=== PATIENT | male | born 1980 | race African-American/Black ===

== ENCOUNTER 2017-01-31 23:00 | Emergency (ER) | payer MEDICAID ==
[~2017-01-31] VITALS: Ht 188 cm; Wt 81.6 kg
[2017-01-31 23:04] VITALS: BP 131/79
[2017-01-31 23:08] VITALS: BP 131/79
[2017-01-31] MEDS ORDERED: IBUPROFEN600 MG ORAL (23:09)
[2017-01-31] MEDS ORDERED: AMOXIL250 MG ORAL (23:09)
[2017-01-31] MEDS ORDERED: TRAMADOL HCL50 MG ORAL (23:09)
[2017-01-31] MEDS ORDERED: HYDROCODON-ACE1 EA15 ORAL (23:41)
[2017-01-31] MEDS ORDERED: BACTRIM DS TAB1 EAC1 ORAL (23:41)
--- NOTE | 2017-01-31 23:41 | Emergency Room Report ---
History of Present Illness General Chief Complaint: Skin Rash/Abscess Source: Patient Present Illness HPI This is a 36-year-old male with no of the past medical history. He presents with swelling to the right chin area for the last week and a half. He try popping it. Now worse. Does have some drainage. No fever chills been no nausea no vomiting. Denies any other complaint. Worse with palpation. Allergies: Coded Allergies: No Known Allergies (Unverified , 01/31/17) Patient History Past Medical History: see triage record, old chart reviewed Past Surgical History: other Pertinent Family History: none Social History: Denies: drug use Immunizations: other Reviewed Nursing Documentation: PMH: Agreed, PSxH: Agreed Nursing Documentation-PMH Past Medical History: No Stated History Review of Systems Eye: Denies: eye pain, blurred vision ENT: Denies: ear pain, nose congestion, throat swelling Respiratory: Denies: cough, shortness of breath Cardiovascular: Denies: chest pain, palpitations Gastrointestinal: Denies: abdominal pain, diarrhea, nausea, vomiting Musculoskeletal: Denies: back pain, joint pain Skin: Denies: rash Neurological: Denies: headache, numbness Endocrine: Denies: increased thirst, increased urine Hematologic/Lymphatic: Denies: easy bruising All Other Systems: negative except mentioned in HPI Physical Exam Vital Signs Date Time Temp Pulse Resp B/P (MAP) Pulse Ox O2 Delivery O2 Flow Rate FiO2 01/31/17 23:04 98.1 72 14 131/79 96 Room Air vitals normal Sp02 EP Interpretation: reviewed, normal General Appearance: well appearing, no apparent distress, alert Head: normocephalic, atraumatic Eyes: bilateral eye PERRL, bilateral eye EOMI ENT: hearing grossly normal, normal pharynx, other - Right chin laterally: There is an indurated area of 3 cm with central necrosis. Tender to palpation. Neck: full range of motion, supple, no meningismus Respiratory: chest non-tender, lungs clear, normal breath sounds Cardiovascular #1: regular rate, rhythm, no murmur Gastrointestinal: normal bowel sounds, non tender, no mass, no organomegaly, no bruit, non-distended Musculoskeletal: back normal, gait/station normal, normal range of motion Psychiatric: mood/affect normal Skin: warm/dry Procedures Incision and Drainage Incision and Drainage : Consent: Verbal Site: chin Blade Size: 11 I & D Procedure: betadine prep, sterile drapes applied Wound Location: face Patient Tolerated: Well Complications: None Progress area clean with Betadine. Local acetic 1% lidocaine without epinephrine. I made a 2 cm incision in there was moderate amount of pus expressed. Are likely very broken up. Patient tolerated procedure without a problem. Medical Decision Making Diagnostic Impression: Primary Impression: Abscess of chin ER Course Patient with abscess to the chin. Most likely MRSA. Doing better now. We'll discharge home. No deep infection. No necrotizing fasciitis. No foreign body. Last Vital Signs Date Time Temp Pulse Resp B/P (MAP) Pulse Ox O2 Delivery O2 Flow Rate FiO2 01/31/17 23:04 98.1 72 14 131/79 96 Room Air Status: improved Disposition: HOME, SELF-CARE Condition: Stable Scripts Hydrocodone/Acetaminophen 5-325* (HYDROCODONE/ACETAMINOPHEN 5-325*) 1 Each Tablet 1 TAB ORAL Q6H Y for For Pain, #15 TAB 0 Refills Prov: JAY BRADHSAW M.D. 01/31/17 Trimethoprim/Sulfamethoxazole 160/800* (BACTRIM DS TABLET*) 1 Each Tablet 1 TAB ORAL Q12H, #14 TAB 0 Refills Prov: JAY BRADSHAW M.D. 01/31/17 Patient Instructions: Abscess Additional Instructions: Followup with your DrMaritza in 2 days for recheck. Return if worse. JAY BRADSHAW M.D. Jan 31, 2017 23:41
[2017-01-31] MEDS ORDERED: Norco 5mg/325mg tab ORAL ONE (23:45)
[2017-01-31] MEDS ORDERED: Bactrim DS (160mg/800mg) tab ORAL ONE (23:45)
== END 2017-02-01 00:10 | disposition home or self-care (01) ==
LOC: EMR 23:25
DX: L02.01 Cutaneous abscess of face (principal)
CPT/HCPCS: 10060; 64450; 99284

== ENCOUNTER 2018-05-06 02:31 | Emergency (ER) | payer MEDICAID ==
[~2018-05-06] VITALS: Ht 188 cm; Wt 81.6 kg
[~2018-05-06 02:31] MED LIST: AMOXIL250 MG ORAL; BACTRIM DS TAB1 EAC1 ORAL; HYDROCODON-ACE1 EA15 ORAL; IBUPROFEN600 MG ORAL; TRAMADOL HCL50 MG ORAL
[2018-05-06 02:53] VITALS: BP 127/84
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
[2018-05-06] MEDS ORDERED: IBUPROFEN600 MG ORAL (03:07)
[2018-05-06] MEDS ORDERED: ANUSOL-HC25 MG RECTAL (03:07)
[2018-05-06] MEDS ORDERED: ROBAXIN500 MG PO (03:07)
[2018-05-06 03:16] VITALS: BP 114/78
== END 2018-05-06 03:13 | disposition home or self-care (01) ==
LOC: EMR 02:58
DX: S60.222A Contusion of left hand, initial encounter (principal); V43.52XA Car driver injured in collision with other type car in traffic accident, initial encounter; Y92.411 Interstate highway as the place of occurrence of the external cause; M54.2 Cervicalgia; K64.9 Unspecified hemorrhoids; F17.200 Nicotine dependence, unspecified, uncomplicated
CPT/HCPCS: 99283

== ENCOUNTER 2018-07-19 01:39 | Emergency (ER) | payer MEDICAID ==
[~2018-07-19] VITALS: Ht 188 cm; Wt 81.6 kg
[~2018-07-19 01:39] MED LIST changes: +ANUSOL-HC25 MG RECTAL; +ROBAXIN500 MG PO
[2018-07-19] MEDS ORDERED: NKM (01:45)
[2018-07-19 01:53] VITALS: BP 119/80
[2018-07-19] MEDS ORDERED: IBUPROFEN600 MG ORAL (02:36)
[2018-07-19 02:40] VITALS: BP 119/80
--- NOTE | 2018-07-19 03:54 | Emergency Room Report ---
History of Present Illness General Chief Complaint: Upper Extremity Injury Source: Patient Present Illness HPI 37-year-old male presents ED for evaluation patient complaining of right hand pain and swelling. States that he "banged" his hand 2 weeks ago against a wall. Did not seek medical attention at that time. Pain is throbbing, 8 out of 10, nonradiating. Denies any other injuries. All other aggravating relieving factors. Denies any other associated symptoms Allergies: Coded Allergies: No Known Allergies (Unverified , 01/31/17) Patient History Past Medical History: none Past Surgical History: none Pertinent Family History: none Social History: Denies: smoking, alcohol use, drug use Immunizations: UTD Reviewed Nursing Documentation: PMH: Agreed; PSxH: Agreed Nursing Documentation-PMH Past Medical History: No Stated History Review of Systems All Other Systems: negative except mentioned in HPI Physical Exam Vital Signs Date Time Temp Pulse Resp B/P (MAP) Pulse Ox O2 Delivery O2 Flow Rate FiO2 07/19/18 01:42 97.9 80 16 119/80 97 Room Air Sp02 EP Interpretation: reviewed, normal General Appearance: no apparent distress, alert, GCS 15, non-toxic Head: normocephalic Eyes: bilateral eye normal inspection, bilateral eye PERRL ENT: normal ENT inspection Neck: normal inspection Respiratory: normal inspection Cardiovascular #1: normal inspection Gastrointestinal: normal inspection Rectal: deferred Genitourinary: no CVA tenderness Musculoskeletal: tender - R hand Neurologic: alert, oriented x3, responsive, motor strength/tone normal, sensory intact, speech normal Psychiatric: judgement/insight normal, memory normal, mood/affect normal, no suicidal/homicidal ideation Skin: normal inspection Lymphatic: normal inspection Procedures Splinting Splinting : Consent: Verbal Hand-Made Type: plaster Splint: volar Pre-Proc Neuro Vasc Exam: normal Post-Proc Neuro Vasc Exam: normal Patient Tolerated: Well Complications: None Medical Decision Making Diagnostic Impression: Primary Impression: Hand fracture Qualified Codes: S62.91XA - Unspecified fracture of right wrist and hand, initial encounter for closed fracture ER Course Hospital Course 37-year-old M presents to ED complaining of R hand pain/swelling. injury 2 weeks ago Differential diagnoses include: Fracture, dislocation, sprain, contusion Clinical course Patient placed on stretcher. After initial history and physical, I ordered R hand xray Xrays prelim read shows 1st metacarpal base fx discussed findings with patient.placed in volar plaster splint. Safe for discharge or close outpatient follow need orthopedic evaluation. I'll provide ortho referral Diagnosis - hand fracture Stable and discharged to home with prescription for Motrin. apply ice, keep elevated. Followup with ortho. Return to ED if symptoms recur or worsen Other X-Ray Diagnostic Results Other X-Ray Diagnostic Results : X-Ray ordered: R hand # of Views/Limited Vs Complete: 3 View Indication: Pain EP Interpretation: Yes Interpretation: no dislocation, other - R 1st metacarpal base fx Impression: Other - fx Electronically Signed by: Electronically signed by Job Minor MD Last Vital Signs Date Time Temp Pulse Resp B/P (MAP) Pulse Ox O2 Delivery O2 Flow Rate FiO2 07/19/18 02:40 97.9 16 119/80 97 Room Air 07/19/18 01:53 86 Status: improved Disposition: HOME, SELF-CARE Condition: Stable Scripts Ibuprofen* (MOTRIN*) 600 Mg Tablet 600 MG ORAL Q8H PRN for For Pain, #30 TAB 0 Refills Prov: Job Minor MD 07/19/18 Patient Instructions: Metacarpal Fracture, [id number] Additional Instructions: Orthopedic urgent care: [address] [facility] [address] [place], [place] [id number] email: Job Minor MD Jul 19, 2018 03:54
--- NOTE | 2018-07-19 10:03 | Diagnostic Imaging Report ---
Indication: Right hand pain Findings: 3 views of the right hand were obtained. There is an acute intra-articular fracture at the base of the second metacarpal extending into the metacarpal carpal joint. There is comminution and slight impaction also noted. Soft tissue swelling noted. IMPRESSION: Acute fracture at the base of the second metacarpal
== END 2018-07-19 02:40 | disposition home or self-care (01) ==
LOC: EMR 02:08
DX: S62.310A Displaced fracture of base of second metacarpal bone, right hand, initial encounter for closed fracture (principal); W22.01XA Walked into wall, initial encounter; Y92.89 Other specified places as the place of occurrence of the external cause
CPT/HCPCS: 29125; 99283